=== PATIENT | male | born 1955 | race Two or more races ===

== ENCOUNTER 2024-06-01 09:03 | Inpatient (IN) | payer BC, OTHER ==
[~2024-06-01] VITALS: Ht 177.8 cm; Wt 116.0 kg
--- NOTE | 2024-06-01 09:20 | ECG ---
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
--- NOTE | 2024-06-01 09:31 | ED.PDOC ---
SOB-HPI HPI Comments 69Y M with PMHx HTN, HLD, and appendectomy presents to ED for chief complaint SOB. Additional symptoms include abd pain and abd distension x3wks. Pt describes abd pain as feeling like he is "going to pop". Pt denies n/v/d. Pt states he has not had a good bowel movement for 1wk. Pt has never had fluid drained from abdomen before. CT abd/pelvis WO contrast was recently done with [facility] on 05/19/2024. Pt stopped drinking alcohol 2 months ago. No known allergies. Chief Complaint: Shortness of Breath Time Seen by MD: 09:10 Primary Care Provider: NOE Reviewed notes: Medications, Allergies Information Source: Patient Mode of Arrival: Ambulatory Severity: Moderate Timing: Weeks Duration: Since onset Context: At Rest PE Risk Factors: None History of: None Modifying Factors: Nothing Associated Signs and Symptoms: Other Past Medical History PAST MEDICAL HISTORY: High Lipids, HTN Surgical History: Appendectomy Family History Family History: Unknown Social History Smoker: Non-Smoker Alcohol: Denies ETOH Use, Sober Drugs: Denies Drug Use Lives In: Home Constitutional: denies: chills, diaphoresis, fatigue, fever, malaise, sweats, weakness, others EENTM: denies: blurred vision, double vision, ear bleeding, ear discharge, ear drainage, ear pain, ear ringing, eye pain, eye redness, hearing loss, mouth pain, mouth swelling, nasal discharge, nose bleeding, nose congestion, nose pain, photophobia, tearing, throat pain, throat swelling, voice changes, others Respiratory: reports: shortness of breath; denies: cough, hemoptysis, orthopnea, SOB at rest, SOB with excertion, stridor, wheezing, others Cardiovascular: denies: chest pain, dizzy spells, diaphoresis, Dyspnea on exertion, edema, irregular heart beat, left arm pain, lightheadedness, palpitations, PND, syncope, others Gastrointestinal: reports: abdomen distended, abdominal pain, constipated; denies: blood streaked bowels, diarrhea, dysphagia, difficulty swallowing, hematemesis, melena, nausea, poor appetite, poor fluid intake, rectal bleeding, rectal pain, vomiting, others Genitourinary: denies: burning, dysuria, flank pain, frequency, hematuria, incontinence, penile discharge, penile sore, pain, testicle pain, testicle swelling, urgency, others Neurological: denies: dizziness, fainting, headache, left sided numbness, left sided weakness, numbness, paresthesia, pre-existing deficit, right sided numbness, right sided weakness, seizure, speech problems, tingling, tremors, weakness, others Musculoskeletal: denies: back pain, gout, joint pain, joint swelling, muscle pain, muscle stiffness, neck pain, others Integumetry: denies: bruises, change in color, change in hair/nails, dryness, laceration, lesions, lumps, rash, wounds, others Allergic/Immunocompromised: denies: Difficulty Healing, Frequent Infections, Hives, Itching, others Hematologic/Lymphatic: denies: anemia, blood clots, easy bleeding, easy bruising, swollen glands, others Endocrine: denies: excessive hunger, excessive sweating, excessive thirst, excessive urination, flushing, intolerance to cold, intolerance to heat, unexplained weight gain, unexplained weight loss, others Psychiatric: denies: anxiety, bipolar disorder, depression, hopeless, panic disorder, schizophrenia, sleepless, suicidal, others All Other Systems: Reviewed and Negative Physical Exam General Appearance: No Apparent Distress, Normal HEENT: Normal ENT Inspection, Pharynx Normal, TMs Normal Neck: Full Range of Motion, Non-Tender, Normal, Normal Inspection Respiratory: Chest Non-Tender, Lungs Clear, No Accessory Muscle Use, No Respiratory Distress, Normal Breath Sounds Cardiovascular: No Edema, No JVD, No Murmur, No Gallop, Normal Peripheral Pulses, Regular Rate/Rhythm Breast Exam: Deferred Gastrointestinal: Distended Genitalia: Deferred Pelvic: Deferred Rectal: Deferred Extremities: No calf tenderness, Normal capillary refill, Normal inspection, Normal range of motion, Non-tender, No pedal edema Musculoskeletal : Apperance: Normal Neurologic: Alert, ladle watcher II-XII nml as Tested, No Motor Deficits, Normal Affect, Normal Mood, No Sensory Deficits Cerebellar Function: NOT DONE Reflexes: NOT DONE Skin: Dry, Normal Color, Warm Lymphatic: No Adenopathy Was a procedure done? Was a procedure done?: No Differential Dx Differential Diagnosis: Asthma, CHF, COPD, Pneumonia, Other (SBP, malignancy, worsening ascites) X-Ray, Labs, Meds, VS Vital Signs Date Time Temp Pulse Resp B/P (MAP) Pulse Ox O2 Delivery O2 Flow Rate FiO2 06/01/24 09:15 90 06/01/24 09:15 98.0 90 18 155/72 (99) 98 Lab Test 06/01/24 11:18 06/01/24 10:13 06/01/24 09:20 Range/Units Lactic Acid Level 1.9 2.4 *H 0.4-2.0 mmol/L Troponin I High Sensitivity 19 19 </=54 ng/L White Blood Count 8.9 4.4-10.8 10^3/uL Red Blood Count 3.63 L 4.5-5.90 10^6/uL Hemoglobin 10.5 L 13.5-17.5 g/dL Hematocrit 31.6 L 41.0-53.0 % Mean Corpuscular Volume 87.0 80.0-100.0 fL Mean Corpuscular Hemoglobin 28.9 28.0-32.0 pg Mean Corpuscular Hemoglobin Concent 33.2 32.0-36.0 g/dL Red Cell Distribution Width 15.6 H 11.8-14.3 % Platelet Count 268 140-450 10^3/uL Mean Platelet Volume 7.8 6.9-10.8 fL Neutrophils (%) (Auto) 67.2 37.0-80.0 % Lymphocytes (%) (Auto) 17.9 10.0-50.0 % Monocytes (%) (Auto) 11.1 0.0-12.0 % Eosinophils (%) (Auto) 2.4 0.0-7.0 % Basophils (%) (Auto) 1.4 0.0-2.0 % Neutrophils # (Auto) 6.0 1.6-8.6 10 ^3/uL Lymphocytes # (Auto) 1.6 0.4-5.4 10 ^3/uL Monocytes # (Auto) 1.0 0-1.3 10 ^3/uL Eosinophils # (Auto) 0.2 0-0.8 10 ^3/uL Basophils # (Auto) 0.1 0-0.2 10 ^3/uL Nucleated Red Blood Cells 0.0 % Prothrombin Time 13.1 H 9.3-11.8 sec Prothrombin Time INR 1.26 H 0.9-1.15 Sodium Level 137 136-145 mmol/L Potassium Level 3.1 L 3.5-5.1 mmol/L Chloride Level 102 98-107 mmol/L Carbon Dioxide Level 23 20-31 mmol/L Anion Gap 12 5-15 Blood Urea Nitrogen 30 H 9-23 mg/dL Creatinine 2.72 H 0.700-1.30 mg/dL Glomerular Filtration Rate Calc 25 >90 mL/min BUN/Creatinine Ratio 11.0 10.0-20.0 Serum Glucose 103 74-106 mg/dL Calcium Level 9.7 8.7-10.4 mg/dL Total Bilirubin 1.1 H 0.2-1.0 mg/dL Aspartate Amino Transferase (AST) 54 H 13-40 U/L Alanine Aminotransferase (ALT) 29 7-40 U/L Alkaline Phosphatase 361 H 46-116 U/L B-Type Natriuretic Peptide 539.84 0-100 pg/mL Total Protein 7.9 5.7-8.2 g/dL Albumin 4.1 3.2-4.8 g/dL [place] [id number] Ph: [phone] DIAGNOSTIC IMAGING Diagnostic Imaging Report : [id number] Signed PATIENT: BERNABE FROST ACCT: [id number] UNIT: [id number] : 1955 LOC: ER ROOM / BED: / AGE / SEX: 69 / M ADM STATUS: REG ER SERVICE ORDERING PHYSICIAN: RY BENNETT MD PROCEDURE(s): CAPIV - CT CHEST/AB/PL W CON- IV ONLY REASON: sob, ascites, c/f malignancy ORDER NUMBER(s): [id number], ACCESSION NUMBER(s): [id number] CLINICAL INFORMATION: 69 years old, Male; sob, ascites, concern for malignancy. TECHNIQUE: Axial CT images of the chest, abdomen, and pelvis were obtained without IV contrast. Please note that at the time of dictation, the examination title states CT chest, abdomen, pelvis with contrast, although no contrast is present on this examination Coronal and sagittal reformatted images were obtained, reviewed, and stored. Evaluation of the parenchymal organs and vasculature is limited without IV contrast. Evaluation of the bowel and mesentery is limited without oral contrast. All CT scans at this medical facility are performed using dose modulation techniques as appropriate to a performed exam including the following: Automated exposure control was utilized; adjustment of the MA and/or KV according to patient size; and use of iterative reconstruction technique. CTDIvol = 20.61 mGy DLP = 1718.01 mGy-cm COMPARISON: None FINDINGS: CT CHEST: Aorta: No aneurysm. Moderate atherosclerotic calcification. Cardiac: Heart size is within normal limits. Dense coronary artery calcification. Mediastinum/uriel: No mass or adenopathy. Lungs: Small left pleural effusion with overlying compressive atelectasis. Lungs are otherwise clear. Pulmonary arteries: No gross abnormality. Chest wall: No mass or other abnormality. Bones: No fracture or suspicious intraosseous lesions. CT ABDOMEN/PELVIS: Liver: Cirrhotic liver morphology with nodular contour of the liver and relative enlargement of the left hepatic lobe. Biliary: Mildly distended gallbladder with small calcified gallstones near the gallbladder neck. Spleen: Unremarkable. Pancreas: Grossly unremarkable. Adrenal glands: Unremarkable. No mass. Kidneys: No hydronephrosis. No renal or ureteral calculi identified. Aorta: Scattered atherosclerotic calcification. No abdominal aortic aneurysm. Retroperitoneum: No mass or lymphadenopathy. Bowel/mesentery: No small bowel obstruction. Appendix is not visualized. Moderate to large amount of abdominal and pelvic ascites. Pelvic organs: Grossly unremarkable. Bladder: Underdistended bladder. Grossly unremarkable. Abdominal wall: Diffuse body wall edema / anasarca. Bones: No acute fracture or suspicious intraosseous lesion visualized. IMPRESSION: 1. Moderate to large amount of abdominal ascites. 2. Cirrhotic liver morphology. 3. Diffuse body wall edema / anasarca. 4. Distended gallbladder with small gallstones in the gallbladder neck. 5. Small left pleural effusion with overlying compressive atelectasis. 6. Additional findings as described above. ATED BY: MITUL ALVAREZ DO DICTATED DATE/TIME: 06/01/241151 SIGNED BY: MITUL ALVAREZ DO SIGNED DATE/TIME: 06/01/241151 CC: Time of 1ST Reevaluation: 09:40 Reevaluation 1ST: Unchanged Patient Education/Counseling: Diagnosis, Treatment Family Education/Counseling: No Family Present Additional Information The following tests were ordered, and results were reviewed by me: CBC, CMP, BNP, PT/PTT, lactic acid, Troponin x3, UA, EKG, CXR, CT chest/abd/pelvis W contrast I reviewed and agreed with the following test results read by other providers: CXR, CT chest/abd/pelvis W contrast I discussed treatments and results with medical personnel. Departure 1 Departure Time of Disposition: 13:00 (Patient presented with shortness of breath and now abdominal pain that was concerning for possible appendicits, gastritis, cholecystitis, colitis, gastroenteritis, sbo, pneumonia, volume overload or orther possible surgical emergency. Data: 1. I ordered and reviewed the result of at least 3 labs including a CBC, BMP, and Urinalysis. 2. I independently interpreted the following tests: CT Abdoment and Pelvis is concerning for ascites worsening cirrhosis .Risk:This patient has a high risk of morbidity due to further diagnostic testing or treatment and may suffer from an acute abdominal process disorder. Workup reveals for volume overload and concern for SBP and patient should be admitted for further workup. and possible expert consultation. ) Impression: Primary Impression: Dyspnea Qualified Codes: R06.02 - Shortness of breath Additional Impressions: Abdominal pain Qualified Codes: R10.84 - Generalized abdominal pain Ascites Qualified Codes: K70.31 - Alcoholic cirrhosis of liver with ascites Disposition: ADMITTED INPATIENT Admit to: Med Surg Condition: Serious Critical Care Note Critical Care Time?: No Stability Stability form required: No Heart Score Heart Score: Heart Score Response (Comments) Value History N/A 0 EKG N/A 0 Age N/A 0 Risk Factors N/A 0 Troponin N/A 0 Total 0 I personally scribed for RY BENNETT MD ([employer]) on 06/01/24 at 09:31. Electronically submitted by Hayde Agosto ([employer]). I personally scribed for RY BENNETT MD ([employer]) on 06/01/24 at 12:17. Electronically submitted by Hayde Agosto ([employer]). RY BENNETT MD Jun 01, 2024 09:31
[2024-06-01 09:33] LABS: Basophils # (auto) 0.1 10 ^3/uL (0-0.2); Basophils % (auto) 1.4 % (0.0-2.0); Eosinophils # (auto) 0.2 10 ^3/uL (0-0.8); Eosinophils % (auto) 2.4 % (0.0-7.0); Hematocrit 31.6 % (41.0-53.0); Hemoglobin 10.5 g/dL (13.5-17.5); Lymphocytes # (auto) 1.6 10 ^3/uL (0.4-5.4); Lymphocytes % (auto) 17.9 % (10.0-50.0); Mean Corpuscular Hemoglobin 28.9 pg (28.0-32.0); Mean Corpuscular Hgb Conc. 33.2 g/dL (32.0-36.0); Monocytes % (auto) 11.1 % (0.0-12.0); Neutrophils % (auto) 67.2 % (37.0-80.0); Platelet Count (auto) 268 10^3/uL (140-450); Red Blood Cells 3.63 10^6/uL (4.5-5.90); Red Cell Distribution Width 15.6 % (11.8-14.3); White Blood Cell 8.9 10^3/uL (4.4-10.8)
[2024-06-01 09:53] LABS: INR 1.26 (0.9-1.15); Prothrombin Time 13.1 sec (9.3-11.8)
[2024-06-01 09:54] LABS: Alanine Aminotransferase 29 U/L (7-40); Albumin 4.1 g/dL (3.2-4.8); Anion Gap 12 (5-15); Bilirubin, Total 1.1 mg/dL (0.2-1.0); Calcium 9.7 mg/dL (8.7-10.4); Carbon Dioxide 23 mmol/L (20-31); Chloride 102 mmol/L (98-107); Glucose 103 mg/dL (74-106); Sodium 137 mmol/L (136-145); Total Protein 7.9 g/dL (5.7-8.2)
[2024-06-01 10:01] LABS: Alkaline Phosphatase 361 U/L (46-116); Aspartate Aminotransferase 54 U/L (13-40); Blood Urea Nitrogen 30 mg/dL (9-23); Potassium 3.1 mmol/L (3.5-5.1)
[2024-06-01 10:04] LABS: Lactic Acid w/Reflex 2.4 mmol/L (0.4-2.0)
--- NOTE | 2024-06-01 11:54 | DVH ---
CLINICAL INFORMATION: 69 years old, Male; sob, ascites, concern for malignancy. TECHNIQUE: Axial CT images of the chest, abdomen, and pelvis were obtained without IV contrast. Plea se note that at the time of dictation, the examination title states CT chest, abdomen, pelvis with co ntrast, although no contrast is present on this examination Coronal and sagittal reformatted images w ere obtained, reviewed, and stored. Evaluation of the parenchymal organs and vasculature is limited w ithout IV contrast. Evaluation of the bowel and mesentery is limited without oral contrast. All CT sc ans at this medical facility are performed using dose modulation techniques as appropriate to a perfo rmed exam including the following: Automated exposure control was utilized; adjustment of the MA and/ or KV according to patient size; and use of iterative reconstruction technique. CTDIvol = 20.61 mGy DLP = 1718.01 mGy-cm COMPARISON: None FINDINGS: CT CHEST: Aorta: No aneurysm. Moderate atherosclerotic calcification. Cardiac: Heart size is within normal limits. Dense coronary artery calcification. Mediastinum/uriel: No mass or adenopathy. Lungs: Small left pleural effusion with overlying compressive atelectasis. Lungs are otherwise clear. Pulmonary arteries: No gross abnormality. Chest wall: No mass or other abnormality. Bones: No fracture or suspicious intraosseous lesions. CT ABDOMEN/PELVIS: Liver: Cirrhotic liver morphology with nodular contour of the liver and relative enlargement of the left hepatic lobe. Biliary: Mildly distended gallbladder with small calcified gallstones near the gallbladder neck. Spleen: Unremarkable. Pancreas: Grossly unremarkable. Adrenal glands: Unremarkable. No mass. Kidneys: No hydronephrosis. No renal or ureteral calculi identified. Aorta: Scattered atherosclerotic calcification. No abdominal aortic aneurysm. Retroperitoneum: No mass or lymphadenopathy. Bowel/mesentery: No small bowel obstruction. Appendix is not visualized. Moderate to large amount of abdominal and pelvic ascites. Pelvic organs: Grossly unremarkable. Bladder: Underdistended bladder. Grossly unremarkable. Abdominal wall: Diffuse body wall edema / anasarca. Bones: No acute fracture or suspicious intraosseous lesion visualized. IMPRESSION: 1. Moderate to large amount of abdominal ascites. 2. Cirrhotic liver morphology. 3. Diffuse body wall edema / anasarca. 4. Distended gallbladder with small gallstones in the gallbladder neck. 5. Small left pleural effusion with overlying compressive atelectasis. 6. Additional findings as described above.
[2024-06-01] MEDS: ceFAZolin 2 GM/D5W50ml 50 ML IV ONE (13:00)
[2024-06-01] MEDS ORDERED: MORPHINE SULFATE INJ 2 MG/ml SYRG IV PRN (13:45)
[2024-06-01] MEDS ORDERED: NITROGLYCERIN 0.4 MG SL TAB SL PRN (13:45)
[2024-06-01] MEDS: MORPHINE SULFATE 4 MG/ML SYR/VIAL IV ONE (14:01)
[2024-06-01] MEDS: ONDANSETRON HCL 4 MG/2 ML VIAL IV ONE (14:01)
[2024-06-01] MEDS: metroNIDAZOLE 500MG/100ML 100 ML IV ONE (14:01)
[2024-06-01] MEDS: FUROSEMIDE 40 MG/4 ML VIAL IV ONE (15:32)
--- NOTE | 2024-06-01 18:24 | DVHHP2 ---
Admitting Diagnosis: Anasarca History of Present Illness HPI Patient is a 69-year-old male with past medical history of liver cirrhosis, CKD stage IV, hypertension, hyperlipidemia who presents with progressively worsening lower extremity edema and shortness of breath over the past 3 weeks. Patient states that he was diagnosed liver cirrhosis but has never had a paracentesis done. He denies having any fever, chills but complains of constipation. Patient denies taking any diuretics. Patient denies any abdominal tenderness. Past Medical History Cardiac: HTN Renal/: CKD Review of Systems Constitutional: No symptom reported Cardiovascular: Edema H&P Exam Vital Signs Vital Signs Date Time Temp Pulse Resp B/P (MAP) Pulse Ox O2 Delivery O2 Flow Rate FiO2 06/01/24 14:01 86 18 151/71 06/01/24 13:25 97.7 94 97.7 General Appeara: Well developed, Obese Pulmonary/Respiratory: Lungs clear Cardiovascular/Chest: Regular rate Abdominal Exam: Normal bowel sounds, Other (Distention) Labs/Xrays Labs Test 06/01/24 13:01 06/01/24 11:18 06/01/24 09:20 Range/Units Troponin I High Sensitivity 18 </=54 ng/L Lactic Acid Level 1.9 0.4-2.0 mmol/L White Blood Count 8.9 4.4-10.8 10^3/uL Red Blood Count 3.63 L 4.5-5.90 10^6/uL Hemoglobin 10.5 L 13.5-17.5 g/dL Hematocrit 31.6 L 41.0-53.0 % Mean Corpuscular Volume 87.0 80.0-100.0 fL Mean Corpuscular Hemoglobin 28.9 28.0-32.0 pg Mean Corpuscular Hemoglobin Concent 33.2 32.0-36.0 g/dL Red Cell Distribution Width 15.6 H 11.8-14.3 % Platelet Count 268 140-450 10^3/uL Mean Platelet Volume 7.8 6.9-10.8 fL Neutrophils (%) (Auto) 67.2 37.0-80.0 % Lymphocytes (%) (Auto) 17.9 10.0-50.0 % Monocytes (%) (Auto) 11.1 0.0-12.0 % Eosinophils (%) (Auto) 2.4 0.0-7.0 % Basophils (%) (Auto) 1.4 0.0-2.0 % Neutrophils # (Auto) 6.0 1.6-8.6 10 ^3/uL Lymphocytes # (Auto) 1.6 0.4-5.4 10 ^3/uL Monocytes # (Auto) 1.0 0-1.3 10 ^3/uL Eosinophils # (Auto) 0.2 0-0.8 10 ^3/uL Basophils # (Auto) 0.1 0-0.2 10 ^3/uL Nucleated Red Blood Cells 0.0 % Prothrombin Time 13.1 H 9.3-11.8 sec Prothrombin Time INR 1.26 H 0.9-1.15 Sodium Level 137 136-145 mmol/L Potassium Level 3.1 L 3.5-5.1 mmol/L Chloride Level 102 98-107 mmol/L Carbon Dioxide Level 23 20-31 mmol/L Anion Gap 12 5-15 Blood Urea Nitrogen 30 H 9-23 mg/dL Creatinine 2.72 H 0.700-1.30 mg/dL Glomerular Filtration Rate Calc 25 >90 mL/min BUN/Creatinine Ratio 11.0 10.0-20.0 Serum Glucose 103 74-106 mg/dL Calcium Level 9.7 8.7-10.4 mg/dL Total Bilirubin 1.1 H 0.2-1.0 mg/dL Aspartate Amino Transferase (AST) 54 H 13-40 U/L Alanine Aminotransferase (ALT) 29 7-40 U/L Alkaline Phosphatase 361 H 46-116 U/L B-Type Natriuretic Peptide 539.84 0-100 pg/mL Total Protein 7.9 5.7-8.2 g/dL Albumin 4.1 3.2-4.8 g/dL Assessment/Plan Primary Diagnosis 1. Anasarca 2/2 Liver Cirrhosis 2. Hypertension 3. CKD Stage 4 Plan -Lasix 40 mg IV twice daily. Spironolactone. Strict I's and O's Nephrology: Monitor. Pulmonary consulted for paracentesis. Fluid cultures to be sent. Low suspicion for SBP at this time. No peritoneal signs noted. Cardiology consulted to rule out underlying CHF. TTE pending. Plan discussed with: Patient NORMA DIMAS DO Jun 01, 2024 18:24
[2024-06-01] MEDS: FUROSEMIDE 40 MG/4 ML VIAL IV SCH (19:56)
[2024-06-01] MEDS: SPIRONOLACTONE 25 MG TAB PO SCH (19:57)
[2024-06-01] MEDS: amLODIPine BESYLATE 5 MG TAB PO SCH (19:57)
--- NOTE | 2024-06-01 19:59 | DVH ---
CHEST RADIOGRAPH Indication: sob Technique: Single frontal view of the chest was obtained COMPARISON: None FINDINGS: Lines and Tubes: None Lungs: Left basilar atelectasis. No clear evidence of pneumonia. Pleura: Small left pleural effusion. No pneumothorax. Cardiomediastinal contours: Unremarkable Bones: Unremarkable IMPRESSION: 1. Small left pleural effusion.
[2024-06-01 20:22] VITALS: PULSE 94; RESP 16; O2SAT 96
--- NOTE | 2024-06-01 20:51 | DVHINCON2 ---
Date of service: Jun 01, 2024 Referring Physician Bryon Emerson DO Reason for Consultation Pleural effusion and ascites History of Present Illness A 69-year-old man with past medical history of liver cirrhosis, CKD stage IV, hypertension, and hyperlipidemia who presents with progressively worsening lower extremity edema and shortness of breath over the past 3 weeks. Patient states that he was diagnosed liver cirrhosis but has never had a paracentesis done. He denies having any fever, chills but complains of constipation. Patient denies taking any diuretics. Patient denies any abdominal tenderness. Patient was admitted for further care and pulmonary consultation is requested for evaluation and management due to pleural effusion and ascites. Review of Systems: 14-point review of systems negative unless otherwise noted above. Past Medical History: Liver cirrhosis, CKD stage IV, hypertension, and hyperlipidemia Past Surgical History: None. Medications: Reviewed. Allergies: No known drug allergies. Family History: No family history of premature CAD. No family history of lung disorders. Social History: Nonsmoker. No alcohol or illicit drug use. Allergies: Coded Allergies: NO KNOWN ALLERGIES (Unverified , 06/01/24) Home Meds Reported Medications Atorvastatin Calcium (Lipitor) 20 Mg Tab, 20 MG PO DAILY, TAB 06/02/24 Amlodipine Besylate (Amlodipine Besylate) 5 Mg Tab, 10 MG PO DAILY for 30 Days, MG 06/02/24 Current Medications Current Medications Medications (Trade) Dose Ordered Sig/Shashank Route PRN Reason Start Time Stop Time Status Last Admin Nitroglycerin (Ntrostat Sublingual) 0.4 mg Q5MINP PRN SL FOR CHEST PAIN 06/01/24 13:45 Morphine Sulfate 2 mg Q30M PRN IV FOR CHEST PAIN 06/01/24 13:45 Amlodipine Besylate (Norvasc Tablet) 10 mg DAILY PO 06/01/24 17:00 06/01/24 19:57 Furosemide (Lasix Injection) 40 mg BIDD IV 06/01/24 18:00 06/01/24 19:56 Spironolactone (Aldactone) 50 mg DAILY PO 06/01/24 17:00 06/01/24 19:57 Vital Signs Vital Signs Date Time Temp Pulse Resp B/P (MAP) Pulse Ox O2 Delivery O2 Flow Rate FiO2 06/01/24 20:22 94 16 96 Room Air* 0 21 06/01/24 20:15 98.1 155/73 (100) 98.1 Physical Exam Gen.: Patient lying in bed in no apparent distress. Breathing on room air. Head: Normocephalic, atraumatic. Eyes: EOMI/PERRLA. Ears: Normal hearing. Normal anatomy. Neck/trachea: Trachea midline, supple. Nose: Normal external anatomy. Mouth: Moist mucous membranes. Chest: Decreased air entry bilaterally. No wheezing or rhonchi. Cardiovascular: Positive S1, positive S2. Regular rate and rhythm. Abdomen: Positive bowel sounds in all 4 quadrants. Soft, non-tender, non- distended. : Deferred. Rectal: Deferred. Skin: Warm, dry. Intact. Extremities: 2+ radial pulses bilaterally. No lower extremity edema. Neuro: Awake, alert, oriented x3. No gross motor or sensory deficits. Cranial nerves II through XII intact. Gait not assessed. Labs/Diagnostic Data Labs Test 06/01/24 13:01 06/01/24 11:18 06/01/24 09:20 Range/Units Troponin I High Sensitivity 18 </=54 ng/L Lactic Acid Level 1.9 0.4-2.0 mmol/L White Blood Count 8.9 4.4-10.8 10^3/uL Red Blood Count 3.63 L 4.5-5.90 10^6/uL Hemoglobin 10.5 L 13.5-17.5 g/dL Hematocrit 31.6 L 41.0-53.0 % Mean Corpuscular Volume 87.0 80.0-100.0 fL Mean Corpuscular Hemoglobin 28.9 28.0-32.0 pg Mean Corpuscular Hemoglobin Concent 33.2 32.0-36.0 g/dL Red Cell Distribution Width 15.6 H 11.8-14.3 % Platelet Count 268 140-450 10^3/uL Mean Platelet Volume 7.8 6.9-10.8 fL Neutrophils (%) (Auto) 67.2 37.0-80.0 % Lymphocytes (%) (Auto) 17.9 10.0-50.0 % Monocytes (%) (Auto) 11.1 0.0-12.0 % Eosinophils (%) (Auto) 2.4 0.0-7.0 % Basophils (%) (Auto) 1.4 0.0-2.0 % Neutrophils # (Auto) 6.0 1.6-8.6 10 ^3/uL Lymphocytes # (Auto) 1.6 0.4-5.4 10 ^3/uL Monocytes # (Auto) 1.0 0-1.3 10 ^3/uL Eosinophils # (Auto) 0.2 0-0.8 10 ^3/uL Basophils # (Auto) 0.1 0-0.2 10 ^3/uL Nucleated Red Blood Cells 0.0 % Prothrombin Time 13.1 H 9.3-11.8 sec Prothrombin Time INR 1.26 H 0.9-1.15 Sodium Level 137 136-145 mmol/L Potassium Level 3.1 L 3.5-5.1 mmol/L Chloride Level 102 98-107 mmol/L Carbon Dioxide Level 23 20-31 mmol/L Anion Gap 12 5-15 Blood Urea Nitrogen 30 H 9-23 mg/dL Creatinine 2.72 H 0.700-1.30 mg/dL Glomerular Filtration Rate Calc 25 >90 mL/min BUN/Creatinine Ratio 11.0 10.0-20.0 Serum Glucose 103 74-106 mg/dL Calcium Level 9.7 8.7-10.4 mg/dL Total Bilirubin 1.1 H 0.2-1.0 mg/dL Aspartate Amino Transferase (AST) 54 H 13-40 U/L Alanine Aminotransferase (ALT) 29 7-40 U/L Alkaline Phosphatase 361 H 46-116 U/L B-Type Natriuretic Peptide 539.84 0-100 pg/mL Total Protein 7.9 5.7-8.2 g/dL Albumin 4.1 3.2-4.8 g/dL Assessment Impression: Anasarca Liver cirrhosis Ascites, large Small left pleural effusion. Atelectasis Obesity BMI 37.6 Plan: Supplemental oxygen PRN Titrate to keep O2 sats above 92%. Diurese w/ Lasix BID. Continue spironolactone. Monitor renal function. Monitor electrolytes. Supplement as necessary. Monitor ins and outs. Strict ins and outs Follow up Echocardiogram Follow up Cardiology recs Continue antibiotics Incentive spirometry Obtain consent for left thoracentesis + paracentesis. Will plan for procedures in the AM. DVT prophylaxis. Prognosis: Poor given patient's multiple co-morbidities. Rest of plan per hospitalist and other consultants. Thank you Dr. Bryon Tahhan, DO, for allowing me to participate in this patient's care. Further recommendations will depend on the patient's clinical course. Please do not hesitate to contact me if you have any questions or concerns. This medical document was created using an electronic medical record system with mokono dictation system. Although these documentations are being carefully reviewed, there may still be some phonetic and typographical changes. The errors are purely typographical, due to imperfection on the software program, and do not reflect any compromise in the patient's medical care. Plan discussed with: Patient, Other (RN, Dr. Emerson) FARHAN ARMENTA MD Jun 01, 2024 20:51
[2024-06-02] VITALS (9 sets, daily range): BP systolic 128–148; BP diastolic 64–76; PULSE 79–92; RESP 16–20; TEMP 97.1–99.4; O2SAT 92–94
[2024-06-02] MEDS ORDERED: AMLO1TAB22 PO (00:29)
[2024-06-02] MEDS ORDERED: ATOR20TA PO (00:29)
[2024-06-02] MEDS ORDERED: PNEUMOCOCCAL VACC POLYS 25 MCG/0.5 ML VIAL IM ONE (00:45)
[2024-06-02] MEDS ORDERED: FUROSEMIDE 40 MG/4 ML VIAL IV ONE (06:00)
[2024-06-02 07:42] LABS: Urine Bacteria None Seen /hpf (None Seen)
[2024-06-02 07:59] LABS: Urine Blood 2+ /uL (Negative); Urine Clarity Clear (Clear); Urine Color Yellow (Yellow); Urine Hyaline Cast FEW /lpf (0 - 2); Urine Protein, UAD Negative (Negative); Urine Specific Gravity 1.012 (1.001-1.035); Urine Urobilinogen Normal (Negative); Urine WBC 1 /hpf (0 - 3)
[2024-06-02 08:10] LABS: Basophils # (auto) 0.1 10 ^3/uL (0-0.2); Basophils % (auto) 1.2 % (0.0-2.0); Eosinophils # (auto) 0.2 10 ^3/uL (0-0.8); Hematocrit 30.3 % (41.0-53.0); Hemoglobin 10.1 g/dL (13.5-17.5); Lymphocytes # (auto) 1.3 10 ^3/uL (0.4-5.4); Lymphocytes % (auto) 13.9 % (10.0-50.0); Mean Corpuscular Hemoglobin 28.9 pg (28.0-32.0); Mean Corpuscular Hgb Conc. 33.2 g/dL (32.0-36.0); Mean Corpuscular Volume 86.9 fL (80.0-100.0); Monocytes # (auto) 0.8 10 ^3/uL (0-1.3); Monocytes % (auto) 8.8 % (0.0-12.0); Neutrophils # (auto) 6.7 10 ^3/uL (1.6-8.6); Neutrophils % (auto) 74.1 % (37.0-80.0); Platelet Count (auto) 262 10^3/uL (140-450); Red Blood Cells 3.48 10^6/uL (4.5-5.90); Red Cell Distribution Width 15.5 % (11.8-14.3); White Blood Cell 9.1 10^3/uL (4.4-10.8)
[2024-06-02 08:44] LABS: Alanine Aminotransferase 26 U/L (7-40); Albumin 4.1 g/dL (3.2-4.8); Anion Gap 13 (5-15); BUN/Creatinine Ratio 11.3 (10.0-20.0); Bilirubin, Total 0.9 mg/dL (0.2-1.0); Calcium 9.9 mg/dL (8.7-10.4); Carbon Dioxide 21 mmol/L (20-31); Chloride 100 mmol/L (98-107); Glucose 92 mg/dL (74-106)
[2024-06-02 08:45] LABS: Total Protein 7.8 g/dL (5.7-8.2)
[2024-06-02 08:50] LABS: Alkaline Phosphatase 336 U/L (46-116); Aspartate Aminotransferase 48 U/L (13-40); Blood Urea Nitrogen 32 mg/dL (9-23); Potassium 3.3 mmol/L (3.5-5.1); Sodium 134 mmol/L (136-145)
--- NOTE | 2024-06-02 10:12 | DVH ---
PROCEDURE: ULTRASOUND GUIDED PARACENTESIS HISTORY: 69 Male requiring paracentesis. TECHNIQUE: The risks and benefits of the procedure including but not limited to bleeding, infection and injury t o abdominal organs were explained to the patient and written informed consent was obtained. Optimal site for puncture was determined using ultrasound and the area sterilized and draped. Using a 5 [place] Yueh catheter, paracentesis was performed in the right lower abdomen. Approximately 7 li ters of straw colored fluid was removed. The patient tolerated the procedure well. There were no im mediate complications. IMPRESSION: Ultrasound-guided paracentesis with no immediate complications. Procedure performed by Dr. Reed.
[2024-06-02 10:16] LABS: Hepatitis B Surface Antigen Negative (Negative)
[2024-06-02 10:37] LABS: Hepatitis A Ab IgM Negative; Hepatitis B Core IgM Negative
[2024-06-02 10:38] LABS: Hepatitis C Antibody Negative (Negative)
--- NOTE | 2024-06-02 10:39 | DVHNC2 ---
Procedure - Paracentesis Procedure Note Paracentesis Procedure Note INDICATION: Ascites PROCEDURE ALL ROUND BUTCHER: Dr Galvez Ultrasound used to jazmin location: Yes CONSENT: Consent was obtained from patient prior to the procedure. Indications, risks, and benefits were explained at length. PROCEDURE SUMMARY: A time-out was performed. My hands were washed immediately prior to the procedure. I wore a surgical cap, mask with protective eyewear, sterile gown and sterile gloves throughout the procedure. The area was cleansed and draped in usual sterile fashion using chlorhexidine scrub. Anesthesia was achieved with 1% lidocaine. The right lower quadrant of the abdomen was prepped and draped in a sterile fashion using chlorhexidine scrub. 1% lidocaine was used to numb the skin, soft tissue and peritoneum. The paracentesis catheter was inserted and advanced with negative pressure until yellow colored fluid was aspirated. Approximately 60 mL of ascitic fluid was collected and sent for laboratory analysis. The catheter was then connected to the vaccutainer and 7 liters of additional ascitic fluid were drained. The catheter was removed and no leaking was noted. A band aid was placed over the puncture wound. The patient tolerated the procedure well without any immediate complications. Estimated blood loss was less than 5 mL. CPT 16824 FARHAN GALVEZ MD Jun 02, 2024 10:39
--- NOTE | 2024-06-02 11:58 | DVHINCON2 ---
Date of service: Jun 02, 2024 History of Present Illness HPI Patient is a 69-year-old male with past medical history of liver cirrhosis, CKD stage IV, hypertension, hyperlipidemia who presents with progressively worsening lower extremity edema and shortness of breath over the past 3 weeks. Patient states that he was diagnosed liver cirrhosis but has never had a paracentesis done. He denies having any fever, chills but complains of constipation. Patient denies taking any diuretics. Patient denies any abdominal tenderness. Past Medical History Past Medical History Cardiac: HTN Renal/: CKD Review of Systems Review of Systems Constitutional: No symptom reported Cardiovascular: Edema Past Medical History reviewed Family History: Patient reports no known family medical history. Allergies: Coded Allergies: NO KNOWN ALLERGIES (Unverified , 06/01/24) Home Meds Reported Medications Atorvastatin Calcium (Lipitor) 20 Mg Tab, 20 MG PO DAILY, TAB 06/02/24 Amlodipine Besylate (Amlodipine Besylate) 5 Mg Tab, 10 MG PO DAILY for 30 Days, MG 06/02/24 Current Medications Current Medications Medications (Trade) Dose Ordered Sig/Shashank Route PRN Reason Start Time Stop Time Status Last Admin Nitroglycerin (Ntrostat Sublingual) 0.4 mg Q5MINP PRN SL FOR CHEST PAIN 06/01/24 13:45 Morphine Sulfate 2 mg Q30M PRN IV FOR CHEST PAIN 06/01/24 13:45 Amlodipine Besylate (Norvasc Tablet) 10 mg DAILY PO 06/01/24 17:00 06/02/24 11:13 Furosemide (Lasix Injection) 40 mg BIDD IV 06/01/24 18:00 06/01/24 19:56 Spironolactone (Aldactone) 50 mg DAILY PO 06/01/24 17:00 06/02/24 10:57 DC 06/02/24 10:23 Spironolactone (Aldactone) 100 mg DAILY PO 06/03/24 10:00 UNV Review of Systems 10 pt ros otherwise negative Vital Signs Vital Signs Date Time Temp Pulse Resp B/P (MAP) Pulse Ox O2 Delivery O2 Flow Rate FiO2 06/02/24 11:13 135/72 06/02/24 09:00 97.6 84 17 92 97.6 06/02/24 00:26 Room Air* 0 21 Physical Exam nad s1 s2 rrr ctab soft, +distended + leg edema bilatera Labs/Diagnostic Data Labs Test 06/02/24 10:15 06/02/24 07:35 06/01/24 13:01 06/01/24 11:18 Range/Units White Blood Count 9.1 4.4-10.8 10^3/uL Red Blood Count 3.48 L 4.5-5.90 10^6/uL Hemoglobin 10.1 L 13.5-17.5 g/dL Hematocrit 30.3 L 41.0-53.0 % Mean Corpuscular Volume 86.9 80.0-100.0 fL Mean Corpuscular Hemoglobin 28.9 28.0-32.0 pg Mean Corpuscular Hemoglobin Concent 33.2 32.0-36.0 g/dL Red Cell Distribution Width 15.5 H 11.8-14.3 % Platelet Count 262 140-450 10^3/uL Mean Platelet Volume 7.7 6.9-10.8 fL Neutrophils (%) (Auto) 74.1 37.0-80.0 % Lymphocytes (%) (Auto) 13.9 10.0-50.0 % Monocytes (%) (Auto) 8.8 0.0-12.0 % Eosinophils (%) (Auto) 2.0 0.0-7.0 % Basophils (%) (Auto) 1.2 0.0-2.0 % Neutrophils # (Auto) 6.7 1.6-8.6 10 ^3/uL Lymphocytes # (Auto) 1.3 0.4-5.4 10 ^3/uL Monocytes # (Auto) 0.8 0-1.3 10 ^3/uL Eosinophils # (Auto) 0.2 0-0.8 10 ^3/uL Basophils # (Auto) 0.1 0-0.2 10 ^3/uL Nucleated Red Blood Cells 0.0 % Sodium Level 134 L 136-145 mmol/L Potassium Level 3.3 L 3.5-5.1 mmol/L Chloride Level 100 98-107 mmol/L Carbon Dioxide Level 21 20-31 mmol/L Anion Gap 13 5-15 Blood Urea Nitrogen 32 H 9-23 mg/dL Creatinine 2.82 H 0.700-1.30 mg/dL Glomerular Filtration Rate Calc 24 >90 mL/min BUN/Creatinine Ratio 11.3 10.0-20.0 Serum Glucose 92 74-106 mg/dL Hemoglobin A1c 5.3 <5.7 % A1C Calcium Level 9.9 8.7-10.4 mg/dL Total Bilirubin 0.9 0.2-1.0 mg/dL Aspartate Amino Transferase (AST) 48 H 13-40 U/L Alanine Aminotransferase (ALT) 26 7-40 U/L Alkaline Phosphatase 336 H 46-116 U/L Total Protein 7.8 5.7-8.2 g/dL Albumin 4.1 3.2-4.8 g/dL Hepatitis A IgM Antibody Negative Hepatitis B Surface Antigen Negative Negative Hepatitis B Core IgM Antibody Negative Hepatitis C Antibody Negative Negative HIV (1&2) Antibody Negative Negative Troponin I High Sensitivity 18 </=54 ng/L Lactic Acid Level 1.9 0.4-2.0 mmol/L Test 06/01/24 09:20 06/01/24 07:42 Range/Units Prothrombin Time 13.1 H 9.3-11.8 sec Prothrombin Time INR 1.26 H 0.9-1.15 B-Type Natriuretic Peptide 539.84 0-100 pg/mL Urine Color Yellow Yellow Urine Clarity Clear Clear Urine pH 5.0 5.0-9.0 Urine Specific [place] 1.012 1.001-1.035 Urine Protein Negative Negative Urine Ketones Negative Negative Urine Blood 2+ H Negative /uL Urine Nitrite Negative Negative Urine Bilirubin Negative Negative Urine Urobilinogen Normal Negative mg/dL Urine Leukocyte Esterase Negative Negative /uL Urine RBC 8 0 - 3 /hpf Urine WBC 1 0 - 3 /hpf Urine Squamous Epithelial Cells Few <5 /hpf Urine Bacteria None seen None Seen /hpf Urine Hyaline Casts Few 0 - 2 /lpf Urine Yeast (Budding) None Seen /hpf Urine Glucose Normal Normal mg/dL Assessment r/o chf PACs on ecg liver failure cirrhosis ckd stage IV Plan/Recommendation bnp elevated lvef 60%, normal bivfunction cont diuretics per renal likely hepatorenal syndrome cause for fluid overload dc home when stable outpt cv eval Plan discussed with: Patient KARLOS HIGH MD Jun 02, 2024 11:58
--- NOTE | 2024-06-02 12:03 | DVHPN2 ---
Progress Note - Dictate Date Seen: Jun 02, 2024 Medical Necessity Reason Pt with a Central, PICC or Fol: No Subjective Patient comfortable. Has been urinating. vital signs Vital Sign Date Time Temp Pulse Resp B/P (MAP) Pulse Ox O2 Delivery O2 Flow Rate FiO2 06/02/24 11:13 135/72 06/02/24 09:00 97.6 84 17 92 97.6 06/02/24 00:26 Room Air* 0 21 Total Intake and Output 06/01/24 06/01/24 06/02/24 15:00 23:00 07:00 Intake Total 200 ml Balance 200 ml medications Current Medications Medications Dose Ordered Sig/Shashank Route Start Time Stop Time Status Last Admin Dose Admin Nitroglycerin 0.4 mg Q5MINP PRN SL 06/01/24 13:45 Morphine Sulfate 2 mg Q30M PRN IV 06/01/24 13:45 Amlodipine Besylate 10 mg DAILY PO 06/01/24 17:00 06/02/24 11:13 10 MG Furosemide 40 mg BIDD IV 06/01/24 18:00 06/01/24 19:56 40 MG Spironolactone 100 mg DAILY PO 06/03/24 10:00 UNV objective General appearance: No acute distress Respiratory: Lungs clear to auscultation. No wheezing, crackles Cardiovascular: Regular rate and rhythm, no murmurs. Anasarca Abdomen: Soft, nondistended, nontender, bowel sounds present MSK: Normal range of motion. Neuro: Alert, no neurological deficits Psych: Appropriate mood and affect. laboratory and microbiology Laboratory Tests 06/02/24 07:35 Test 06/02/24 07:35 Range/Units Serum Glucose 92 74-106 mg/dL Problem List 1. Anasarca secondary to liver cirrhosis 2. Hypertension 3. Morbid Obesity 4. CKD Stage 4 Assessment/Plan -Continue diuresis with Lasix 40 m IV twice daily -Strict I's and O's -Nephrology consulted for anasarca. Will consider adding albumin and spironolactone. -Paracentesis completed today, 7 L removed. -Fluid studies sent -No indication for further antibiotics at this time is unlikely to have underlying SBP -Cardiology consulted for TTE to rule out for concomitant CHF -Daily CBC and CMP -Full Code Plan discussed with: Patient NORMA DIMAS DO Jun 02, 2024 12:03
[2024-06-02] MEDS: SPIRONOLACTONE 25 MG TAB PO ONE (12:24)
[2024-06-02 12:53] LABS: Body Fluid Polymorphonuclear 3 % (0-25); Body Fluid Red Blood Cells 0 CUMM (0-2000); Body Fluid White Blood Cells 8341 CUMM (0-200)
--- NOTE | 2024-06-02 13:03 | DVHSR ---
APPROVED REPORT EXAM: Two-dimensional and M-mode echocardiogram with Doppler and color Doppler. Blood Pressure: 129/76 mmHg INDICATION Rule out CHF RISK FACTORS Height: 70, Weight: 262 DIMENSIONS LVDd4.7 (3.8-5.7cm)LA (2D)5.4 (1.9-4.0cm)Aortic Root3.6 (2.0-3.7cm) LVDs3.2 (2.5-4.0cm)LA (MM) (1.9-4.0cm)Aortic Cusp Exc1.0 (1.5-2.0cm) EF (%) 60.0 (55-70%)Rt. Atrium5.5 (1.9-4.0cm)Asc. Aorta cm IVSd1.3 (0.7-1.1cm)RV (D) (1.8-2.4cm) PWd1.4 (0.7-1.1cm) Mitral Valve MitralMitral Stenosis E wave1.39m/sMV Mean GR.mmHg A wave1.14m/sMV Peak GR.41mmHg E/A ratio1.22D MVAcm2 DECEL [id number] 1/2 Qiyg69lm IVRTmsDop MVA3.53cm2 Aortic Valve Aortic ValveAortic Stenosis V11.56m/Cuca Mean GR.10mmHg V22.22m/Cuca Peak GR.20mmHg LVOT Diameter2.1 (1.8-2.4cm)Doppler AVA2.43cm2 Pulmonic Valve V21.30m/s Tricuspid Valve TR Velocity3.07m/s [id number] Conclusion lvef 60% normal lv function normal rv function mild aortic stenosis anasarca noted left atrium enlarged mild
--- NOTE | 2024-06-02 13:06 | DVHCONRES ---
Date Seen: Jun 02, 2024 Resident Creating Document: WILLIAM MULLINS RESIDENT Referring Physician Dr Emerson Reason for Consultation BRYAN History of Present Illness Patient is 69-year-old male with past medical history of hypertension, hyperlipidemia and liver cirrhosis, stage 4 kidney disease presented to hospital with a worsening lower extremity edema and shortness of breath over the past four weeks. As per patient has been diagnosed with liver cirrhosis within one year and following with kidney doctor for chronic kidney disease as well. Patient denied drinking alcohol for last two months. Patient denied any other symptoms including fever, chills, headache, chest pain, muscular weakness, motor or sensory deficits, abdominal pain. Past Medical History Hypertension, hyperlipidemia, liver cirrhosis, CKD stage 4 Past Surgical History None Family History: Patient reports no known family medical history. Social History Drinks regular alcohol from age 18, till now, stopped alcohol drinking last two months. Allergies: Coded Allergies: NO KNOWN ALLERGIES (Unverified , 06/01/24) Home Meds Reported Medications Atorvastatin Calcium (Lipitor) 20 Mg Tab, 20 MG PO DAILY, TAB 06/02/24 Amlodipine Besylate (Amlodipine Besylate) 5 Mg Tab, 10 MG PO DAILY for 30 Days, MG 06/02/24 Current Medications Current Medications Medications (Trade) Dose Ordered Sig/Shashank Route PRN Reason Start Time Stop Time Status Last Admin Nitroglycerin (Ntrostat Sublingual) 0.4 mg Q5MINP PRN SL FOR CHEST PAIN 06/01/24 13:45 Morphine Sulfate 2 mg Q30M PRN IV FOR CHEST PAIN 06/01/24 13:45 Amlodipine Besylate (Norvasc Tablet) 10 mg DAILY PO 06/01/24 17:00 06/02/24 11:13 Furosemide (Lasix Injection) 40 mg BIDD IV 06/01/24 18:00 06/02/24 13:05 DC 06/01/24 19:56 Spironolactone (Aldactone) 50 mg DAILY PO 06/01/24 17:00 06/02/24 10:57 DC 06/02/24 10:23 Spironolactone (Aldactone) 100 mg DAILY PO 06/03/24 10:00 Review of Systems Eyes: No Pain, No Vision change, No Conjunctivae inflammation, No Eyelid inf lammation, No Other, No Redness ENT: No Ear pain, No Ear discharge, No Nose pain, No Nose discharge, No Nose congestion, No Mouth pain, No Mouth swelling, No Throat pain, No Throat swelling, No Other Cardiovascular: No Chest Pain, No Palpitations, No Orthopnea, No Paroxysmal Noc. Dyspnea, No Edema, No Lt Headedness, No Other Respiratory: No Cough, No Dry, No Shortness of breath, No SOB with excertion, No Wheezing, No Hemoptysis, No Pleuritic Pain, No Sputum, No Other Gastrointestinal: No Nausea, No Vomiting, No Abdominal Pain, No Diarrhea, No Constipation, No Melena, No Hematochezia, No Other Genitourinary: No Dysuria, No Frequency, No Incontinence, No Hematuria, No Retention, No Other Musculoskeletal: No other, No neck pain, No shoulder pain, No arm pain, No back pain, No hand pain, No leg pain, No foot pain Skin: No Rash, No Lesions, No Jaundice, No Bruising, No Other Vital Signs Vital Signs Date Time Temp Pulse Resp B/P (MAP) Pulse Ox O2 Delivery O2 Flow Rate FiO2 06/02/24 12:59 98.5 79 16 141/70 (93) 92 98.5 06/02/24 00:26 Room Air* 0 21 Physical Exam General Appearance: Cooperative. Well developed. Well nourished. NAD Head Exam: Normal inspection Neck Exam: Normal inspection. Non-tender. Normal alignment Pulmonary/Respiratory: Chest non-tender. Clear bilateral breath sounds Cardiovascular/Chest: Regular rate and rhythm. No murmurs. No JVD. Peripheral Pulses: 2+ Radial (R). 2+ Radial (L). 2+ Pedal (R). 2+ Pedal (L) Abdominal Exam: Normal bowel sounds. Soft. Nontender. No hepatospenomegaly. No masses, distended abdomen, fluid still present. Ankle Exam: Negative ankle edema Lower extremities: 1+ bilateral lower extremity edema Neuro/Mental Status: A&O x4. Coherent Thoughts/Psych: Normal thought pattern. Appropriate mood and affect. Good judgement and insight Appearance: In no acute distress Skin Exam: Normal inspection. Normal color. Warm. Dry Labs/Diagnostic Data Labs Test 06/02/24 10:15 06/02/24 07:35 06/01/24 13:01 06/01/24 11:18 Range/Units Body Fluid Source Ascites Body Fluid pH 8.0 Body Fluid WBC (Manual) 8341 H 0-200 CUMM Body Fluid RBC (Manual) 0 0-2000 CUMM Body Fluid Mononuclear Cells 97 % Body Fluid Polymorphonuclear Cells 3 0-25 % White Blood Count 9.1 4.4-10.8 10^3/uL Red Blood Count 3.48 L 4.5-5.90 10^6/uL Hemoglobin 10.1 L 13.5-17.5 g/dL Hematocrit 30.3 L 41.0-53.0 % Mean Corpuscular Volume 86.9 80.0-100.0 fL Mean Corpuscular Hemoglobin 28.9 28.0-32.0 pg Mean Corpuscular Hemoglobin Concent 33.2 32.0-36.0 g/dL Red Cell Distribution Width 15.5 H 11.8-14.3 % Platelet Count 262 140-450 10^3/uL Mean Platelet Volume 7.7 6.9-10.8 fL Neutrophils (%) (Auto) 74.1 37.0-80.0 % Lymphocytes (%) (Auto) 13.9 10.0-50.0 % Monocytes (%) (Auto) 8.8 0.0-12.0 % Eosinophils (%) (Auto) 2.0 0.0-7.0 % Basophils (%) (Auto) 1.2 0.0-2.0 % Neutrophils # (Auto) 6.7 1.6-8.6 10 ^3/uL Lymphocytes # (Auto) 1.3 0.4-5.4 10 ^3/uL Monocytes # (Auto) 0.8 0-1.3 10 ^3/uL Eosinophils # (Auto) 0.2 0-0.8 10 ^3/uL Basophils # (Auto) 0.1 0-0.2 10 ^3/uL Nucleated Red Blood Cells 0.0 % Sodium Level 134 L 136-145 mmol/L Potassium Level 3.3 L 3.5-5.1 mmol/L Chloride Level 100 98-107 mmol/L Carbon Dioxide Level 21 20-31 mmol/L Anion Gap 13 5-15 Blood Urea Nitrogen 32 H 9-23 mg/dL Creatinine 2.82 H 0.700-1.30 mg/dL Glomerular Filtration Rate Calc 24 >90 mL/min BUN/Creatinine Ratio 11.3 10.0-20.0 Serum Glucose 92 74-106 mg/dL Hemoglobin A1c 5.3 <5.7 % A1C Calcium Level 9.9 8.7-10.4 mg/dL Total Bilirubin 0.9 0.2-1.0 mg/dL Aspartate Amino Transferase (AST) 48 H 13-40 U/L Alanine Aminotransferase (ALT) 26 7-40 U/L Alkaline Phosphatase 336 H 46-116 U/L Total Protein 7.8 5.7-8.2 g/dL Albumin 4.1 3.2-4.8 g/dL Hepatitis A IgM Antibody Negative Hepatitis B Surface Antigen Negative Negative Hepatitis B Core IgM Antibody Negative Hepatitis C Antibody Negative Negative HIV (1&2) Antibody Negative Negative Troponin I High Sensitivity 18 </=54 ng/L Lactic Acid Level 1.9 0.4-2.0 mmol/L Test 06/01/24 09:20 06/01/24 07:42 Range/Units Prothrombin Time 13.1 H 9.3-11.8 sec Prothrombin Time INR 1.26 H 0.9-1.15 B-Type Natriuretic Peptide 539.84 0-100 pg/mL Urine Color Yellow Yellow Urine Clarity Clear Clear Urine pH 5.0 5.0-9.0 Urine Specific [place] 1.012 1.001-1.035 Urine Protein Negative Negative Urine Ketones Negative Negative Urine Blood 2+ H Negative /uL Urine Nitrite Negative Negative Urine Bilirubin Negative Negative Urine Urobilinogen Normal Negative mg/dL Urine Leukocyte Esterase Negative Negative /uL Urine RBC 8 0 - 3 /hpf Urine WBC 1 0 - 3 /hpf Urine Squamous Epithelial Cells Few <5 /hpf Urine Bacteria None seen None Seen /hpf Urine Hyaline Casts Few 0 - 2 /lpf Urine Yeast (Budding) None Seen /hpf Urine Glucose Normal Normal mg/dL Assessment BRYAN on CKD stage 4 likely prerenal versus hepatorenal Alcoholic liver cirrhosis Ascites Anasarca Small left pleural effusion Hypertension Hyperlipidemia Plan/recommendation Dr Sotomayor -Medication Adjustments: Continue IV Lasix (40 mg daily) and increase spironolactone to 100 mg p.o. daily to manage fluid retention. -IV Albumin: Status post paracentesis, 7 L removed. Administer IV albumin as needed, especially to maintain intravascular volume -Fluid Restriction: Limit fluid intake to less than 1.2 liters per day to manage fluid overload. -Salt Restriction: Implement a strict low-sodium diet to help control edema and ascites. -Renal Diet: Follow a renal-friendly diet that is low in potassium and phosphorus, and moderate in protein. -Monitoring and Follow-up: Regularly monitor renal function, electrolytes, and fluid status. Adjust treatment based on clinical response and lab results RTC with Dr. Walker after DC Plan discussed with: Patient, Other ADDENDUM ADDENDUM History of chronic kidney disease stage 4 based on office records Cirrhosis with large volume ascites status post paracentesis IV albumin today diuretics noted seen with resident will return to Dr. Walker clinic after discharge WILLIAM MULLINS Jun 02, 2024 13:06 JIA SOTOMAYOR MD Jun 02, 2024 14:20
[2024-06-02] MEDS: ALBUMIN 25% 50 ML IV ONE (14:44)
[2024-06-02] MEDS: POTASSIUM EFFERVESENT TAB 25 MEQ PO ONE (18:02)
[2024-06-02] MEDS: ALBUMIN 25% 100 ML IV ONE (18:03)
--- NOTE | 2024-06-02 21:56 | DVHPN2 ---
Progress Note - Dictate Date Seen: Jun 02, 2024 Medical Necessity Reason Pt with a Central, PICC or Fol: No Subjective Patient seen and examined at bedside. Breathing comfortably on room air. Overnight events reviewed. vital signs Vital Sign Date Time Temp Pulse Resp B/P (MAP) Pulse Ox O2 Delivery O2 Flow Rate FiO2 06/02/24 17:00 98.7 82 16 128/64 (85) 94 98.7 06/02/24 08:00 Room Air* 0 21 Total Intake and Output 06/01/24 06/01/24 06/02/24 15:00 23:00 07:00 Intake Total 200 ml Balance 200 ml medications Current Medications Medications Dose Ordered Sig/Shashank Route Start Time Stop Time Status Last Admin Dose Admin Nitroglycerin 0.4 mg Q5MINP PRN SL 06/01/24 13:45 Morphine Sulfate 2 mg Q30M PRN IV 06/01/24 13:45 Amlodipine Besylate 10 mg DAILY PO 06/01/24 17:00 06/02/24 11:13 10 MG Spironolactone 100 mg DAILY PO 06/03/24 10:00 objective Gen.: Patient lying in bed in no apparent distress. Breathing on room air. Head: Normocephalic, atraumatic. Eyes: EOMI/PERRLA. Ears: Normal hearing. Normal anatomy. Neck/trachea: Trachea midline, supple. Nose: Normal external anatomy. Mouth: Moist mucous membranes. Chest: Decreased air entry bilaterally. No wheezing or rhonchi. Cardiovascular: Positive S1, positive S2. Regular rate and rhythm. Abdomen: Positive bowel sounds in all 4 quadrants. Soft, non-tender, non- distended. : Deferred. Rectal: Deferred. Skin: Warm, dry. Intact. Extremities: 2+ radial pulses bilaterally. No lower extremity edema. Neuro: Awake, alert, oriented x3. No gross motor or sensory deficits. Cranial nerves II through XII intact. Gait not assessed. laboratory and microbiology Laboratory Tests 06/02/24 07:35 Test 06/02/24 07:35 Range/Units Serum Glucose 92 74-106 mg/dL Assessment/Plan Impression: Anasarca Liver cirrhosis Ascites, large Small left pleural effusion. Atelectasis Obesity BMI 37.6 Events: Breathing on room air No respiratory distress. Paracentesis was performed, drained 7 L of yellow ascitic fluid. See separate procedure note for details. Albumin ordered. Follow up Cardiology recommendations. Follow up Nephrology recommendations. Incentive spirometry Labs and imaging reviewed. Rest of plan as noted below. Plan: Supplemental oxygen PRN Titrate to keep O2 sats above 92%. Maintain euvolemia Continue spironolactone. Monitor renal function. Monitor electrolytes. Supplement as necessary. Monitor ins and outs. Strict ins and outs Follow up Echocardiogram Follow up Cardiology recs Incentive spirometry S/p paracentesis with 7 L of yellow ascitic fluid drained. See separate procedure note for details. DVT prophylaxis. Prognosis: Poor given patient's multiple co-morbidities. Rest of plan per hospitalist and other consultants. Thank you Dr. Bryon Emerson DO, for allowing me to participate in this patient's care. Further recommendations will depend on the patient's clinical course. Please do not hesitate to contact me if you have any questions or concerns. This medical document was created using an electronic medical record system with [employer] dictation system. Although these documentations are being carefully reviewed, there may still be some phonetic and typographical changes. The errors are purely typographical, due to imperfection on the software program, and do not reflect any compromise in the patient's medical care. Plan discussed with: Patient, Other (TURNER Dong) FARHAN ARMENTA MD Jun 02, 2024 21:56
[2024-06-03 01:00] VITALS: BP 132/69; PULSE 85; RESP 19; TEMP 98.7; O2SAT 91
[2024-06-03 05:00] VITALS: BP 122/69; PULSE 81; RESP 19; TEMP 98.1; O2SAT 90
[2024-06-03 06:36] LABS: Basophils # (auto) 0.1 10 ^3/uL (0-0.2); Basophils % (auto) 1.3 % (0.0-2.0); Eosinophils # (auto) 0.2 10 ^3/uL (0-0.8); Eosinophils % (auto) 2.3 % (0.0-7.0); Hematocrit 27.2 % (41.0-53.0); Lymphocytes # (auto) 1.5 10 ^3/uL (0.4-5.4); Lymphocytes % (auto) 19.1 % (10.0-50.0); Mean Corpuscular Hemoglobin 28.7 pg (28.0-32.0); Mean Corpuscular Volume 86.8 fL (80.0-100.0); Monocytes # (auto) 0.9 10 ^3/uL (0-1.3); Monocytes % (auto) 10.8 % (0.0-12.0); Neutrophils # (auto) 5.3 10 ^3/uL (1.6-8.6); Neutrophils % (auto) 66.5 % (37.0-80.0); Platelet Count (auto) 196 10^3/uL (140-450); Red Blood Cells 3.13 10^6/uL (4.5-5.90); Red Cell Distribution Width 15.5 % (11.8-14.3)
[2024-06-03 07:31] LABS: Alanine Aminotransferase 18 U/L (7-40); Albumin 3.4 g/dL (3.2-4.8); Alkaline Phosphatase 252 U/L (46-116); Anion Gap 11 (5-15); Aspartate Aminotransferase 34 U/L (13-40); BUN/Creatinine Ratio 11.1 (10.0-20.0); Bilirubin, Total 0.7 mg/dL (0.2-1.0); Blood Urea Nitrogen 32 mg/dL (9-23); Calcium 9.2 mg/dL (8.7-10.4); Carbon Dioxide 21 mmol/L (20-31); Chloride 103 mmol/L (98-107); Glucose 90 mg/dL (74-106); Potassium 3.5 mmol/L (3.5-5.1); Sodium 135 mmol/L (136-145); Total Protein 6.4 g/dL (5.7-8.2)
[2024-06-03 08:00] VITALS: PULSE 79; RESP 18
[2024-06-03 09:00] VITALS: BP 133/70; PULSE 77; RESP 16; TEMP 98.5; O2SAT 90
--- NOTE | 2024-06-03 09:20 | DVH ---
Procedure: US ABDOMEN LIMITED 06/03/2024 09:07 AM Indication: Ascites. Paracentesis was performed yesterday. Comparison: Ultrasound-guided Paracentesis dated 06/02/2024, CT scan dated 06/01/2024 Technique: All 4 abdominal quadrants were surveyed for presence of ascites utilizing grayscale techni que. FINDINGS: Small amount of ascites noted throughout the abdomen with the largest plaque of the right l ower quadrant. IMPRESSION: Small amount of ascites is present.
[2024-06-03] MEDS ORDERED: FURO1TAB31 PO (10:51)
[2024-06-03] MEDS ORDERED: SPIR100T4 PO (10:51)
[2024-06-03] MEDS ORDERED: AMOX500T86 PO (11:11)
--- NOTE | 2024-06-03 11:15 | DVHDS2 ---
Discharge Summary Date of Admission Jun 01, 2024 at 13:41 Date of Discharge: Jun 03, 2024 Labs/Diagnostic Data: Laboratory Results Test 06/03/24 05:03 06/02/24 10:15 06/02/24 07:35 06/01/24 13:01 White Blood Count 8.0 10^3/uL (4.4-10.8) Red Blood Count 3.13 10^6/uL (4.5-5.90) Hemoglobin 9.0 g/dL (13.5-17.5) Hematocrit 27.2 % (41.0-53.0) Mean Corpuscular Volume 86.8 fL (80.0-100.0) Mean Corpuscular Hemoglobin 28.7 pg (28.0-32.0) Mean Corpuscular Hemoglobin Concent 33.0 g/dL (32.0-36.0) Red Cell Distribution Width 15.5 % (11.8-14.3) Platelet Count 196 10^3/uL (140-450) Mean Platelet Volume 8.2 fL (6.9-10.8) Neutrophils (%) (Auto) 66.5 % (37.0-80.0) Lymphocytes (%) (Auto) 19.1 % (10.0-50.0) Monocytes (%) (Auto) 10.8 % (0.0-12.0) Eosinophils (%) (Auto) 2.3 % (0.0-7.0) Basophils (%) (Auto) 1.3 % (0.0-2.0) Neutrophils # (Auto) 5.3 10 ^3/uL (1.6-8.6) Lymphocytes # (Auto) 1.5 10 ^3/uL (0.4-5.4) Monocytes # (Auto) 0.9 10 ^3/uL (0-1.3) Eosinophils # (Auto) 0.2 10 ^3/uL (0-0.8) Basophils # (Auto) 0.1 10 ^3/uL (0-0.2) Nucleated Red Blood Cells 0.0 % Sodium Level 135 mmol/L (136-145) Potassium Level 3.5 mmol/L (3.5-5.1) Chloride Level 103 mmol/L (98-107) Carbon Dioxide Level 21 mmol/L (20-31) Anion Gap 11 (5-15) Blood Urea Nitrogen 32 mg/dL (9-23) Creatinine 2.88 mg/dL (0.700-1.30) Glomerular Filtration Rate Calc 23 mL/min (>90) BUN/Creatinine Ratio 11.1 (10.0-20.0) Serum Glucose 90 mg/dL (74-106) Calcium Level 9.2 mg/dL (8.7-10.4) Total Bilirubin 0.7 mg/dL (0.2-1.0) Aspartate Amino Transferase (AST) 34 U/L (13-40) Alanine Aminotransferase (ALT) 18 U/L (7-40) Alkaline Phosphatase 252 U/L (46-116) Total Protein 6.4 g/dL (5.7-8.2) Albumin 3.4 g/dL (3.2-4.8) Body Fluid Source Ascites Body Fluid pH 8.0 Body Fluid WBC (Manual) 8341 CUMM (0-200) Body Fluid RBC (Manual) 0 CUMM (0-2000) Body Fluid Mononuclear Cells 97 % Body Fluid Polymorphonuclear Cells 3 % (0-25) Hemoglobin A1c 5.3 % A1C (<5.7) Hepatitis A IgM Antibody Negative Hepatitis B Surface Antigen Negative (Negative) Hepatitis B Core IgM Antibody Negative Hepatitis C Antibody Negative (Negative) HIV (1&2) Antibody Negative (Negative) Troponin I High Sensitivity 18 ng/L (</=54) Test 06/01/24 11:18 06/01/24 09:20 06/01/24 07:42 Lactic Acid Level 1.9 mmol/L (0.4-2.0) Prothrombin Time 13.1 sec (9.3-11.8) Prothrombin Time INR 1.26 (0.9-1.15) B-Type Natriuretic Peptide 539.84 pg/mL (0-100) Urine Color Yellow (Yellow) Urine Clarity Clear (Clear) Urine pH 5.0 (5.0-9.0) Urine Specific [place] 1.012 (1.001-1.035) Urine Protein Negative (Negative) Urine Ketones Negative (Negative) Urine Blood 2+ /uL (Negative) Urine Nitrite Negative (Negative) Urine Bilirubin Negative (Negative) Urine Urobilinogen Normal mg/dL (Negative) Urine Leukocyte Esterase Negative /uL (Negative) Urine RBC 8 /hpf (0 - 3) Urine WBC 1 /hpf (0 - 3) Urine Squamous Epithelial Cells Few /hpf (<5) Urine Bacteria None seen /hpf (None Seen) Urine Hyaline Casts Few /lpf (0 - 2) Urine Yeast (Budding) /hpf (None Seen) Urine Glucose Normal mg/dL (Normal) Other Laboratory Tests 06/03/24 05:03 Brief Hx & Hospital Course: Patient is a 69-year-old male with past medical history of liver cirrhosis, CKD stage IV, hypertension, morbid obesity who presents with progressive worsening edema and shortness of breath over the past several weeks. Patient was noted to have anasarca on admission. Vital signs were within normal limits. CBC on presentation was notable for anemia of 10.5. CMP was notable for BUN/creatinine of 30/2.72 which is consistent with patient's reported history of CKD stage IV and outside labs. Patient was admitted for diuresis. Patient was evaluated by nephrology. Patient was diuresed with Lasix and Aldactone. Patient good urinary output. Cardiology was consulted to rule out CHF given slightly elevated BNP. TTE was done which did not suggest any signs of CHF. LVEF noted to be 60%. Patient noted to have mild aortic stenosis. Patient underwent paracentesis which removed 7 L. Fluid studies were notable for WBC count 8341 with polymorphonuclear cells 3 resulting in a PMN ratio of 250. Patient did not have any signs of SBP including any fever, peritoneal signs, rebound tenderness. Given these findings, patient was given ceftriaxone 1 g IV and transition to Augmentin 500 mg twice daily for 7 days. Patient could not be discharged on fluoroquinolone given QTc prolongation on EKG. Patient was discharged on Lasix 40 mg daily and spironolactone 100 mg daily. Patient is to follow-up with nephrology within a week for repeat labs. Patient is also to follow-up with GI regarding liver cirrhosis. Patient discharged in stable condition. Patient given ER precautions. [facility] case management help arrange follow-up appointment. Condition at Discharge: Fair Final Diagnosis/Problems List Anasarca due to CKD 4 and Liver Cirrhosis Secondary Diagnosis: Liver Cirrhosis CKD Stage 4 Morbid Obesity Hypertension Spontaneous Bacterial Peritonitis Discharge Disposition: Home Discharge Instruct/Medications Diet: Cardiac 2g Na,low cholest, Renal Diet comment: Low salt, no more than 1.5L fluids per day. Activity: No Restrictions, As Tolerated Follow Up/Referral: Follow up with nephrology within 1 week with repeat labs. Follow up with gastroenterology. [facility] Case Management to help arrange appointments. Medications: Lasix 40mg daily Spirinolactone 100mg daily Discharge Statement: "Patient was advised to return to the ER or call 911 if any headaches, dizziness, shortness of breath, chest pain, abdominal pain, bleeding, fevers, or worsening of medical condition. Patient was counseled about treatment plan, medications, possible side effects, patientverbalized understanding. All questions were answered to the best of my ability. This discharge took greater then 30 minutes in planning, reviewing documentation, counseling the patient, and discussing with other team members." ASSESSMENT ASSESSMENT Assessment Anasarca due to CKD 4 and Liver Cirrhosis NORMA DIMAS DO Jun 03, 2024 11:15
[2024-06-03] MEDS: SPIRONOLACTONE 25 MG TAB PO SCH (11:25)
[2024-06-03] MEDS: FUROSEMIDE 40 MG/4 ML VIAL IV SCH (11:26)
[2024-06-03] MEDS: cefTRIAXone 1GM/50ML D5W 50 ML IV ONE (12:34)
[2024-06-03 13:00] VITALS: BP 141/74; PULSE 87; RESP 16; TEMP 97.6; O2SAT 93
[2024-06-03 13:06] LABS: Albumin, Body Fluid 0.9 g/dL (Not Estab.); Protein, Body Fluid 1.5 g/dL (.)
--- NOTE | 2024-06-03 13:32 | DVHPN2 ---
Progress Note Date Seen: Jun 03, 2024 Resident Creating Document: WILLIAM MULLINS RESIDENT Medical Necessity Reason Pt with a Central, PICC or Fol: No Subjective Review of Systems History of Present Illness Patient is 69-year-old male with past medical history of hypertension, hyperlipidemia and liver cirrhosis, stage 4 kidney disease presented to hospital with a worsening lower extremity edema and shortness of breath over the past four weeks. As per patient has been diagnosed with liver cirrhosis within one year and following with kidney doctor for chronic kidney disease as well. Patient denied drinking alcohol for last two months. Patient denied any other symptoms including fever, chills, headache, chest pain, muscular weakness, motor or sensory deficits, abdominal pain. Past Medical History Hypertension, hyperlipidemia, liver cirrhosis, CKD stage 4 Past Surgical History None Family History: Patient reports no known family medical history. Social History Drinks regular alcohol from age 18, till now, stopped alcohol drinking last two months. Patient seen and examined at bedside. No other new complaints. Objective vital signs Vital Sign Date Time Temp Pulse Resp B/P (MAP) Pulse Ox O2 Delivery O2 Flow Rate FiO2 06/03/24 11:26 133/70 06/03/24 09:00 98.5 77 16 90 98.5 06/02/24 20:00 Room Air* 0 21 Total Intake and Output 06/02/24 06/02/24 06/03/24 15:00 23:00 07:00 Intake Total 1110 ml 200 ml Output Total 0 ml 600 ml Balance 1110 ml -400 ml medications Current Medications Medications Dose Ordered Sig/Shashank Route Start Time Stop Time Status Last Admin Dose Admin Nitroglycerin 0.4 mg Q5MINP PRN SL 06/01/24 13:45 Morphine Sulfate 2 mg Q30M PRN IV 06/01/24 13:45 Amlodipine Besylate 10 mg DAILY PO 06/01/24 17:00 06/03/24 11:25 10 MG Spironolactone 100 mg DAILY PO 06/03/24 10:00 06/03/24 11:25 100 MG Furosemide 40 mg DAILY IV 06/03/24 10:00 06/03/24 11:26 40 MG Examination General Appearance: Cooperative. Well developed. Well nourished. NAD Head Exam: Normal inspection Neck Exam: Normal inspection. Non-tender. Normal alignment Pulmonary/Respiratory: Chest non-tender. Clear bilateral breath sounds Cardiovascular/Chest: Regular rate and rhythm. No murmurs. No JVD. Peripheral Pulses: 2+ Radial (R). 2+ Radial (L). 2+ Pedal (R). 2+ Pedal (L) Abdominal Exam: Normal bowel sounds. Soft. Nontender. No hepatospenomegaly. No masses, distended abdomen, fluid still present. Ankle Exam: Negative ankle edema Lower extremities: 1+ bilateral lower extremity edema Neuro/Mental Status: A&O x4. Coherent Thoughts/Psych: Normal thought pattern. Appropriate mood and affect. Good judgement and insight Appearance: In no acute distress Skin Exam: Normal inspection. Normal color. Warm. Dry laboratory and microbiology Laboratory Tests 06/03/24 05:03 Test 06/03/24 05:03 Range/Units Serum Glucose 90 74-106 mg/dL Microbiology Date/Time Source Procedure Growth Status 06/02/24 10:15 Ascities Fluid Gram Stain - Final Resulted 06/02/24 10:15 Ascities Fluid Body Fluid Culture - Preliminary Resulted Problem List/Assessment/Plan Problem List/Assessment/Plan BRYAN on CKD stage 4 likely prerenal versus hepatorenal Alcoholic liver cirrhosis Ascites Anasarca Small left pleural effusion Hypertension Hyperlipidemia Plan/recommendation Dr Sotomayor -Medication Adjustments: Transition to oral Lasix 40 mg once daily and continue spironolactone 100 mg p.o. daily to manage fluid retention. -repeat abdominal ultrasound: mild ascites -IV Albumin: Status post paracentesis, 7 L removed. Administer IV albumin as needed, especially to maintain intravascular volume -Fluid Restriction: Limit fluid intake to less than 1.2 liters per day to manage fluid overload. -Salt Restriction: Implement a strict low-sodium diet to help control edema and ascites. -Renal Diet: Follow a renal-friendly diet that is low in potassium and phosphorus, and moderate in protein. -Monitoring and Follow-up: Regularly monitor renal function, electrolytes, and fluid status. Adjust treatment based on clinical response and lab results -RTC with Dr. Walker after DC -patient has been discharged per primary care team. Plan discussed with: Patient, Other (RN) My Orders My Orders Orders - WILLIAM MULLINS Procedure Category Date Status Time Abdomen Limited US 06/03/24 Resulted 08:44 Furosemide Injection PHA 06/03/24 In Process (Lasix Injection) 10:00 WILLIAM MULLINS Jun 03, 2024 13:32
[2024-06-03 14:29] VITALS: BP 133/70; TEMP 36.9
== END 2024-06-03 17:30 | disposition home or self-care (01) | DRG 432 ==
LOC: ER 09:03 → TELE 13:41 → TELE-EAST 23:43
PROVIDERS: ADMIT Student in an Organized Health Care Education/Training Program; ATTEND Student in an Organized Health Care Education/Training Program
PROC: 0W9G3ZZ Drainage of Peritoneal Cavity, Percutaneous Approach (ICD-10-PCS; principal; 2024-06-02)
DX: K70.31 Alcoholic cirrhosis of liver with ascites (principal); K65.2 Spontaneous bacterial peritonitis; J98.11 Atelectasis; J90 Pleural effusion, not elsewhere classified; N18.4 Chronic kidney disease, stage 4 (severe); N17.9 Acute kidney failure, unspecified; K72.90 Hepatic failure, unspecified without coma; E78.5 Hyperlipidemia, unspecified; K59.00 Constipation, unspecified; I12.9 Hypertensive chronic kidney disease with stage 1 through stage 4 chronic kidney disease, or unspecified chronic kidney disease; E66.01 Morbid (severe) obesity due to excess calories; D64.9 Anemia, unspecified; Z68.37 Body mass index [BMI] 37.0-37.9, adult; Z79.899 Other long term (current) drug therapy
CPT/HCPCS: 36415; 49083; 71045; 71260; 74177; 76705; 76942; 80053; 80074; 81001; 83036; 83605; 83880; 83986; 84484; 85025; 85610; 86703; 87205; 89051; 93005; 93306; G0378; J2405; J3490